=== PATIENT | male | born 1960 ===

== ENCOUNTER 2017-12-09 00:18 | Day surgery (SDC) | payer OTHER ==
[2017-12-09] VITALS (11 sets, daily range): BP systolic 107–144; BP diastolic 52–106
[~2017-12-09] VITALS: Ht 188 cm; Wt 91.2 kg
[~2017-12-09 00:18] MED LIST: ASPI-1471 PO; FAMOTIDINE 20 MG TAB PO ONE; LIDOCAINE/SOD BICARB 8.4% SYR ID ONE; LISI5TAB25 PO; LORA-629 PO; MIDAZOLAM 2 MG/2 ML VIAL IVP PRN; NORMOSOL R SOLN(*) 1000 ML BAG 1,000 ML IV PRN; PANT40TA65 PO; ceFAZolin(*) 1 GM VIAL 1 GM in NS(*) 0.9% 100 ML ADDVANT BAG 100 ML IVPB ONE
[2017-12-09] MEDS ORDERED: FAMOTIDINE 20 MG TAB PO ONE ×2 (06:20→07:30)
[2017-12-09] MEDS ORDERED: NORMOSOL R SOLN(*) 1000 ML BAG 1,000 ML IV PRN (06:20)
[2017-12-09] MEDS ORDERED: LIDOCAINE/SOD BICARB 8.4% SYR ID ONE ×2 (06:20→07:30)
[2017-12-09] MEDS ORDERED: ceFAZolin(*) 2GM/D5W 50ML 50 ML IVPB ONE ×2 (06:20→08:35)
[2017-12-09] MEDS ORDERED: MIDAZOLAM 2 MG/2 ML VIAL IVP PRN ×2 (06:20→07:30)
[2017-12-09] MEDS ORDERED: ROPIVACAINE 0.5% 20 ML VIAL ONE (07:26)
[2017-12-09 07:55] LABS: PLATELET COUNT, AUTOMATED 288 K/uL (150-450)
--- NOTE | 2017-12-09 08:08 | EKG ---
FACILITY: [facility] - [place] PATIENT NAME: MANOLO HUDDLESTON : [id number] MR: [id number] V: [id number] EXAM DATE: ORDERING PHYSICIAN: MANOLO BONNER TECHNOLOGIST: SUJATA Hwang Reason : PRE-OP Blood Pressure : / mmHG Vent. Rate : 085 BPM Atrial Rate : 085 BPM P-R Int : 184 ms QRS Dur : 098 ms QT Int : 366 ms P-R-T Axes : 050 005 052 degrees QTc Int : 435 ms Sinus rhythm No acute appearing findings No previous ECGs available Confirmed by KING PAINTING ([id number]) on 12/09/2017 10:37:56 AM Referred By: HA Confirmed By:KING PAINTING
[2017-12-09] MEDS ORDERED: MIDAZOLAM 2 MG/2 ML VIAL ONE (08:26)
[2017-12-09] MEDS ORDERED: fentaNYL CITR 100 MCG/2 ML AMP ONE ×2 (08:26→10:28)
[2017-12-09] MEDS ORDERED: DEXAMETHASONE SOD PHOS 10MG/ML ONE (08:27)
[2017-12-09] MEDS ORDERED: LIDOCAINE MPF 1% 5 ML VIAL ONE (08:27)
[2017-12-09] MEDS ORDERED: ONDANSETRON 4 MG/2 ML VIAL ONE (08:27)
[2017-12-09] MEDS ORDERED: PROPOFOL EMUL(*) 10MG/ML 20 ML 20 ML ONE (08:27)
[2017-12-09] MEDS ORDERED: ROCURONIUM BROM 10 MG/ML 10 ML ONE (08:27)
[2017-12-09] MEDS ORDERED: PHENYLEPHRINE/NS/PF 0.4MG/10ML ONE (08:56)
[2017-12-09] MEDS ORDERED: SUGAMMADEX SOD 500 MG/5 ML SDV ONE (09:55)
[2017-12-09] MEDS ORDERED: ACETAMINOPHEN(*)1000 MG/100 ML 100 ML IVPB ONE (10:21)
[2017-12-09] MEDS ORDERED: OXYC-854 PO (10:29)
[2017-12-09] MEDS ORDERED: DOCU-416 PO (10:29)
--- NOTE | 2017-12-09 10:32 | Short(Outpt) Discharge Summary ---
Discharge Summary Reason for Hosp/Final Diag: (1) Right inguinal hernia Status: Chronic Hospital Course & Plan: Robotic RIH repair completed without problems. Departure Discharge to: Home, Self Care Discharge Instructions Home Meds Active Scripts Docusate Sodium (COLACE) 100 Mg Capsule, 1 CAP PO BID, #30 CAP 0 Refills TAKE WITH A FULL GLASS OF WATER Prov:MANOLO BONNER MD 12/09/17 Oxycodone Hcl/Acet 5/325 Mg (ENDOCET 5-325 TABLET) 1 Each Tablet, 1-2 TAB PO Q4H Y for PAIN, #30 TAB 0 Refills Prov:MANOLO BONNER MD 12/09/17 Reported Medications Aspirin (ASPIR 81) 81 Mg Tablet., 81 MG PO QDAY, TAB 11/17/17 Loratadine (LORATADINE) 10 Mg Tablet, 10 MG PO QDAY 11/15/17 Lisinopril (LISINOPRIL) 5 Mg Tablet, 1 TAB PO QDAY, TAB 11/15/17 Follow up Referrals: General Surgery - 12/27/17 @ Surgery, General with Manolo Bonner Md You have a follow up appointment scheduled with Dr. Bonner on 12/27/17, at 11:30am. Diet: Regular Activity: No Heavy Lifting Special Instructions: You may remove the white surgical dressings on 12/11/17, then you can shower. After showering, leave the incisions open to air but leave the steristrips in place until they fall off on their own. Do not immerse the incisions for 2 weeks. Avoid any activity that involves straining or lifting more than 10 pounds for 2 weeks. MANOLO BONNER MD Dec 09, 2017 10:32
--- NOTE | 2017-12-09 10:38 | Post Operative Progress Note ---
Post Operative Progress Note Date: Dec 09, 2017 Time: 10:32 Surgeon: Mi Dictation number: [id number] Anesthesia: GETA by Dr. Hernandez Pre-Op Diagnosis: RIH Post-Op Diagnosis: COLLINS, indirect Findings: Right indirect inguinal hernia Procedure(s): Robotic RIH repair Specimen Removed:(May be N/A): None Complications: None Fluids: See anesthesia record Estimated Blood Loss: Minimal Date OP Note Dictated: Dec 09, 2017 Time OP Note Dictated: 10:34 MANOLO BONNER MD Dec 09, 2017 10:38
[2017-12-09] MEDS ORDERED: oxyCODONE/ACETAMIN 5/325MG TH 2 TAB/BOTTLE ONE (11:05)
[2017-12-09] MEDS ORDERED: NORMOSOL R SOLN(*) 1000 ML BAG 1,000 ML IV ONE (11:44)
[2017-12-09] MEDS ORDERED: METOCLOPRAMIDE 10 MG/2 ML SDV ONE (12:18)
--- NOTE | 2017-12-09 15:40 | OPERATIVE REPORT 1 ---
EVENT DATE: December 09, 2017 SURGEON: Shekhar Stark MD ANESTHESIOLOGIST: Yohan Hernandez MD ANESTHESIA: General endotracheal anesthesia. PREOPERATIVE DIAGNOSIS Right inguinal hernia. POSTOPERATIVE DIAGNOSIS Right indirect inguinal hernia. PROCEDURE PERFORMED Robotic right inguinal hernia repair. COMPLICATIONS None. CONDITION Stable. BLOOD LOSS Minimal. INDICATIONS This is a 57-year-old gentleman who presented to my office with a bulge in his right groin. It was slowly getting larger and causing him some discomfort, and he was requesting to have it repaired. DESCRIPTION OF PROCEDURE The patient was brought to the operating room and placed supine on the operating table. General endotracheal anesthesia was administered, and his abdomen was prepped and draped in a sterile fashion. A timeout was completed. I injected the supraumbilical skin with 0.5% ropivacaine plain and made a curvilinear frowning face type incision in the superior umbilical rim. I dissected down through the dermis and subcutaneous fat. I identified the midline fascia and made a vertical incision in the midline fascia. I grasped the fascial edges with Nuha clamps and then bluntly entered the peritoneal cavity with my finger. I placed two interrupted 0 Vicryl sutures transversely through the vertical fascial defect and inserted a 12 mm Collin robotic port through this wound and secured it in place with sutures. I insufflated the abdomen to a pressure of 15 mmHg. I then inserted the camera through this port , and under direct visualization, I placed an 8 mm robotic port in the right mid abdomen and an 8 mm robotic port in the left mid abdomen. With the patient in Trendelenburg, the robot was docked and targeted. The instruments were inserted, and then I inspected the abdominal cavity. I did not see a hernia on the left side. Interestingly, the peritoneum did not go into the inguinal canal in the right groin either. I divided the peritoneum, palpated around the anterior superior iliac spine running medially, and then the peritoneum down creating the preperitoneal pocket. I cleaned off the pubic tubercle and Tico ligament and identified the bladder which was uninjured. I then moved laterally and cleaned off the iliopubic tract all the way to the anterior superior iliac spine. I identified a large cord lipoma, which I was easily able to reduce the entire thing. I identified the cord structures including the vas and gonadal vessels, and these were all preserved. Once the cord lipoma was reduced, I placed a large right-sided ProGrip mesh into the preperitoneal space and unfurled it so it covered the entire myopectineal orifice with a several centimeter overlap on all sides. It laid nice and flat, and then I placed the fat that consisted the cord lipoma on top of the mesh, and then I closed the peritoneal defect with a running V-Loc absorbable suture. I then removed the instruments, desufflated the abdomen, removed the ports, and then closed the umbilical fascial defect with another [id number] 0 Vicryl suture and tied all three of these down with good reapproximation of the fascial edges. The skin at each port site was closed with 4-0 Monocryl running subcuticular suture. The skin was cleaned and dried, and Steri-Strips were applied, followed by sterile surgical dressings. The patient was awakened and extubated in the operating room and transported to the recovery room in stable condition having tolerated the procedure without any apparent problems. TESSA
== END 2017-12-09 11:29 | disposition home or self-care (01) ==
LOC: OR 00:18
PROVIDERS: ATTEND Surgery
DX: K40.90 Unilateral inguinal hernia, without obstruction or gangrene, not specified as recurrent (principal); I10 Essential (primary) hypertension
CPT/HCPCS: 36415; 49650; 85025; 93005; J0131; J1100; J2001; J2250; J2370; J2405; J2704; J2765; J2795; J3010; S2900; C1781; J0690

== ENCOUNTER → 2017-12-13 | Outpatient (CLI) | payer OTHER ==
[~2017-12-13] MED LIST changes: +BARIUM SULFATE 176 GM BTL PO ONE; +BARIUM SULFATE 340 GM POWD ONE; +DOCU-416 PO; -FAMOTIDINE 20 MG TAB PO ONE; -LIDOCAINE/SOD BICARB 8.4% SYR ID ONE; -MIDAZOLAM 2 MG/2 ML VIAL IVP PRN; -NORMOSOL R SOLN(*) 1000 ML BAG 1,000 ML IV PRN; +OXYC-854 PO; -ceFAZolin(*) 1 GM VIAL 1 GM in NS(*) 0.9% 100 ML ADDVANT BAG 100 ML IVPB ONE
--- NOTE | 2017-12-13 10:28 | RADIOLOGY IMAGING REPORT ---
FACILITY: [facility] PATIENT NAME: Manolo Dockery : 1960 MR: [id number] V: [id number] EXAM DATE: ORDERING PHYSICIAN: MANOLO BONNER TECHNOLOGIST: Location: [facility] [place] Patient: Manolo Dockery : 1960 Visit/Account:[id number] Date of Sevice: 12/13/2017 ESOPHAGRAM HISTORY: Dysphagia COMPARISON: None TECHNIQUE: Fizzies followed by multiple consistencies of barium were administered orally with multipl e spot films obtained. A 13 mm barium tablet also administered. FINDINGS: Esophagus: The esophagus is normal in caliber and contour with no persistent intrinsic or extrinsic f illing defects. There are no persistent areas of narrowing. Hiatal hernia: There is no significant hiatal hernia. Reflux: There are no significant episodes of gastroesophageal reflux. Other findings: A barium tablet passed easily without holdup. Dose area product of 600 uGym2 IMPRESSION: 1. Normal esophagram. Report Dictated By: Anoop Campo MD at 12/13/2017 10:20 AM Report E-Signed By: Anoop Campo MD at 12/13/2017 10:22 AM WSN:[email or web address]
== END ==
LOC: RAD 11-29 01:54
PROVIDERS: ATTEND Surgery
DX: R13.10 Dysphagia, unspecified (principal)
CPT/HCPCS: 74220

== ENCOUNTER 2018-01-22 22:06 | Emergency (ER) | payer OTHER ==
[~2018-01-22 22:06] MED LIST changes: -BARIUM SULFATE 176 GM BTL PO ONE; -BARIUM SULFATE 340 GM POWD ONE
--- NOTE | 2018-01-22 22:21 | ER Report ---
History and Physical Time Seen By MD: 22:20 Hx. of Stated Complaint: PT REPORTS DIZZINESS OFF AND ON WEEKLY FOR THE PAST THREE OR FOUR WEEKS. HAS SOME ANXIETY. HAS SOME PAIN IN JAW. HPI/ROS CHIEF COMPLAINT: dizziness, anxiety, jaw discomfort HISTORY OF PRESENT ILLNESS: This is a 57 year old male. he has been having some dizziness off and on, about three times this week, prior to this about once a week. Will come on suddenly, often does note matter what he is doing. Lasted longer than usual tonight and was accompanied by some indigestion and funny feeling of discomfort in jaw. No shortness of breath with this. No acid reflux. Has had an esophagram recently which was normal. No history of heart problems. No cough, fevers or chills. No recent illness. He has had normal oral intake recently, no trouble swallowing. No nausea or vomiting. Normal bowel and bladder function. Allergies: Coded Allergies: No Known Drug Allergies (Unverified , 01/22/18) Home Meds Reported Medications Aspirin (ASPIR 81) 81 Mg Tablet.dr, 81 MG PO QDAY, TAB 11/17/17 Lisinopril (LISINOPRIL) 5 Mg Tablet, 1 TAB PO QDAY, TAB 11/15/17 Discontinued Reported Medications Loratadine (LORATADINE) 10 Mg Tablet, 10 MG PO QDAY 11/15/17 Reviewed Nurses Notes: Yes Hx Smoking: No Smoking Status: Former Smoker Hx Substance Use Disorder: No Constitutional Vital Sign - Last 24 Hours 01/22/18 01/22/18 01/22/18 01/22/18 22:12 22:35 22:45 23:00 Temp 98.0 Pulse 94 95 85 Resp 19 16 17 B/P (MAP) 133/110 125/90 (102) 127/95 (106) 129/94 (106) 127/100 (109) Pulse Ox 93 92 94 91 O2 Delivery Room Air Room Air 01/22/18 01/22/18 01/22/18 01/23/18 23:15 23:30 23:45 00:03 Pulse 87 86 90 85 Resp 14 17 13 16 B/P (MAP) 121/90 (100) 132/82 (99) Pulse Ox 95 92 93 92 O2 Delivery Room Air Physical Exam General Appearance: The patient is alert. No acute distress. Non-toxic in appearance. Eyes: Pupils are equal, round. Reactive to light. No pallor, injection or icterus. Extraocular movements are intact. ENT: Mucous membranes are moist. Normal oral mucosa. Posterior oropharynx is normal. Normal tympanic membranes and canals. Neck: Supple and non tender. No lymphadenopathy. Respiratory: Lungs are clear to auscultation. Cardiovascular: Regular rate and rhythm. No murmurs, gallops or rubs. Normal capillary refill. No edema. Gastrointestinal: Abdomen is soft and non tender. Nondistended. Normal active bowel sounds. Neurological: Alert and oriented x3. Cranial nerves II through XII show no acute deficits on my exam. No focal neurologic deficits in the extremities. Skin: Warm and dry. No rashes. Musculoskeletal: Extremities are nontender. Full range of motion. DIFFERENTIAL DIAGNOSIS: After history and physical exam, differential diagnosis was considered for dizziness including but not limited to peripheral and central causes of vertigo, cardiovascular causes such as arrythmia, orthostatic causes including dehydration, and blood loss. Medical Decision Making Data Points Result Diagram: 01/22/18 2211 01/22/18 2211 Laboratory Hematology Test 01/22/18 22:11 Red Blood Count 5.13 M/uL (4.00-5.60) Mean Corpuscular Volume 90.3 fL (80.0-96.0) Mean Corpuscular Hemoglobin 30.9 pg (26.0-33.0) Mean Corpuscular Hemoglobin Concent 34.2 g/dL (32.0-36.0) Red Cell Distribution Width 13.4 % (11.5-14.5) Mean Platelet Volume 8.0 fL (7.2-11.1) Neutrophils (%) (Auto) 67.0 % (39.4-72.5) Lymphocytes (%) (Auto) 20.2 % (17.6-49.6) Monocytes (%) (Auto) 7.9 % (4.1-12.4) Eosinophils (%) (Auto) 4.2 % (0.4-6.7) Basophils (%) (Auto) 0.7 % (0.3-1.4) Nucleated RBC Relative Count (auto) 0.0 /100WBC Neutrophils # (Auto) 8.2 K/uL (2.0-7.4) Lymphocytes # (Auto) 2.5 K/uL (1.3-3.6) Monocytes # (Auto) 1.0 K/uL (0.3-1.0) Eosinophils # (Auto) 0.5 K/uL (0.0-0.5) Basophils # (Auto) 0.1 K/uL (0.0-0.1) Nucleated RBC Absolute Count (auto) 0.00 K/uL Sodium Level 138 mmol/L (137-145) Potassium Level 3.4 mmol/L (3.5-5.0) Chloride Level 101 mmol/L (98-107) Carbon Dioxide Level 26 mmol/L (22-30) Blood Urea Nitrogen 30 mg/dl (9-21) Creatinine 1.40 mg/dl (0.66-1.25) Glomerular Filtration Rate Calc 52.4 Random Glucose 118 mg/dl (75-110) Calcium Level 9.4 mg/dl (8.4-10.2) Total Bilirubin 0.4 mg/dl (0.2-1.3) Aspartate Amino Transf (AST/SGOT) 32 U/L (0-35) Alanine Aminotransferase (ALT/SGPT) 48 U/L (0-56) Alkaline Phosphatase 68 U/L (0-126) Troponin I < 0.012 ng/ml Total Protein 7.3 gm/dl (6.3-8.2) Albumin 3.9 g/dl (3.5-5.0) Chemistry Test 01/22/18 22:11 White Blood Count 12.3 k/uL (4.5-11.0) Red Blood Count 5.13 M/uL (4.00-5.60) Hemoglobin 15.9 g/dL (14.0-18.0) Hematocrit 46.3 % (42.0-52.0) Mean Corpuscular Volume 90.3 fL (80.0-96.0) Mean Corpuscular Hemoglobin 30.9 pg (26.0-33.0) Mean Corpuscular Hemoglobin Concent 34.2 g/dL (32.0-36.0) Red Cell Distribution Width 13.4 % (11.5-14.5) Platelet Count 247 K/uL (150-450) Mean Platelet Volume 8.0 fL (7.2-11.1) Neutrophils (%) (Auto) 67.0 % (39.4-72.5) Lymphocytes (%) (Auto) 20.2 % (17.6-49.6) Monocytes (%) (Auto) 7.9 % (4.1-12.4) Eosinophils (%) (Auto) 4.2 % (0.4-6.7) Basophils (%) (Auto) 0.7 % (0.3-1.4) Nucleated RBC Relative Count (auto) 0.0 /100WBC Neutrophils # (Auto) 8.2 K/uL (2.0-7.4) Lymphocytes # (Auto) 2.5 K/uL (1.3-3.6) Monocytes # (Auto) 1.0 K/uL (0.3-1.0) Eosinophils # (Auto) 0.5 K/uL (0.0-0.5) Basophils # (Auto) 0.1 K/uL (0.0-0.1) Nucleated RBC Absolute Count (auto) 0.00 K/uL Glomerular Filtration Rate Calc 52.4 Calcium Level 9.4 mg/dl (8.4-10.2) Total Bilirubin 0.4 mg/dl (0.2-1.3) Aspartate Amino Transf (AST/SGOT) 32 U/L (0-35) Alanine Aminotransferase (ALT/SGPT) 48 U/L (0-56) Alkaline Phosphatase 68 U/L (0-126) Troponin I < 0.012 ng/ml Total Protein 7.3 gm/dl (6.3-8.2) Albumin 3.9 g/dl (3.5-5.0) EKG/Imaging EKG Interpretation 12 lead EKG: Rhythm: normal sinus rhythm, rate 88 Sebastian: normal QRS: normal ST segments: normal Imaging CHEST PA AND LAT HISTORY: Dizziness. COMPARISON: None. TECHNIQUE: PA and lateral views of the chest. FINDINGS: Pulmonary: There is a 5 x 2 mm pulmonary nodule versus vessel on end in the right lung projecting between the seventh and eighth posterior right ribs. There is linear subsegmental atelectasis or scarring at the left base. There is no pneumothorax or pleural effusion. Cardiomediastinal: Cardiac and mediastinal silhouettes are within normal limits. Bones/soft tissues: No acute osseous abnormality. There is mild degenerative change of the spine. The visible abdomen is normal. IMPRESSION: 1. Questionable pulmonary nodule versus vessel on end in the right mid lung, visible only on the frontal view. If patient is at high risk for malignancy, and if there are no prior studies available for comparison, nonemergent chest CT versus short-term follow-up chest x-ray could be obtained. If patient is at low risk of malignancy, follow-up chest x-ray in 6 months to one year can be obtained to assess for stability. Report Dictated By: Rafaela Funez at 01/22/2018 11:11 PM HEAD W/O CONTRAST HISTORY: Dizziness. COMPARISON: None. TECHNIQUE: Axial images were obtained from the skull base to the vertex without contrast. Sagittal and coronal reformats were performed. One of the following dose optimization techniques was utilized in the performance of this exam: Automated exposure control; adjustment of the mA and/ or kV according to the patient's size; or use of an iterative reconstruction technique. Specific details can be referenced in the facility's radiology CT exam operational policy. CONTRAST: None. FINDINGS: Brain: No intracranial hemorrhage, mass or edema. Ventricles and sulci: Sulci are normal. Ventricular size and configuration is normal. Osseous structures: Intact. Sinuses and mastoids: Normal. Orbits and soft tissues: Normal. IMPRESSION: 1. No acute intracranial abnormality. Report Dictated By: Rafaela Funez at 01/22/2018 11:17 PM ED Course/Re-evaluation Clinical Indication for ER IV: IV Access ED Course Orthostatic vital signs negative. Labs and imaging unremarkable. EKG also unremarkable. Discussed these with the patient and answered questions. Recommended Holter monitor and follow-up with primary care for re-evaluation and stress testing. Patient will follow-up with Dr. Gutierrez and will hold on Holter for now until he sees her. Decision to Disposition Date: Jan 22, 2018 Decision to Disposition Time: 23:56 Depart Departure Latest Vital Signs Vital Signs Date Time Temp Pulse Resp B/P (MAP) Pulse Ox O2 Delivery O2 Flow Rate FiO2 01/23/18 00:03 85 16 132/82 (99) 92 Room Air 01/22/18 22:12 98.0 Impression: Primary Impression: Dizziness Condition: Improved Disposition: HOME OR SELF-CARE Referrals: LUZ GUTIERREZ DO (PCP) Patient Instructions: Dizziness (ED) Additional Instructions: Talk to Dr. Gutierrez about getting set up for a heart monitor and also to talk about further testing such as a stress test. ALCON MONREAL MD Jan 22, 2018 22:21
--- NOTE | 2018-01-22 22:43 | EKG ---
FACILITY: [facility] PATIENT NAME: MANOLO HUDDLESTON : [id number] MR: [id number] V: [id number] EXAM DATE: ORDERING PHYSICIAN: ALCON MONREAL TECHNOLOGIST: ELOISA Test Reason : JAW PAIN Blood Pressure : / mmHG Vent. Rate : 088 BPM Atrial Rate : 088 BPM P-R Int : 194 ms QRS Dur : 100 ms QT Int : 366 ms P-R-T Axes : 057 013 052 degrees QTc Int : 442 ms Sinus rhythm Borderline left axis Nonspecific ST findings inferolateral leads Confirmed by KING PAINTING ([id number]) on 01/23/2018 4:09:02 PM Referred By: Confirmed By:KING PAINTING
[2018-01-22 22:44] LABS: PLATELET COUNT, AUTOMATED 247 K/uL (150-450)
--- NOTE | 2018-01-22 23:18 | RADIOLOGY IMAGING REPORT ---
FACILITY: [facility] - [place] PATIENT NAME: Shekhar Dockery : 1960 MR: [id number] V: [id number] EXAM DATE: ORDERING PHYSICIAN: ALCON MONREAL TECHNOLOGIST: Location: [facility] - [place] Patient: Shekhar Dockery : 1960 Visit/Account:[id number] Date of Sevice: 01/22/2018 CHEST PA AND LAT HISTORY: Dizziness. COMPARISON: None. TECHNIQUE: PA and lateral views of the chest. FINDINGS: Pulmonary: There is a 5 x 2 mm pulmonary nodule versus vessel on end in the right lung projecting bet ween the seventh and eighth posterior right ribs. There is linear subsegmental atelectasis or scarrin g at the left base. There is no pneumothorax or pleural effusion. Cardiomediastinal: Cardiac and mediastinal silhouettes are within normal limits. Bones/soft tissues: No acute osseous abnormality. There is mild degenerative change of the spine. The visible abdomen is normal. IMPRESSION: 1. Questionable pulmonary nodule versus vessel on end in the right mid lung, visible only on the fron vicente view. If patient is at high risk for malignancy, and if there are no prior studies available for comparison, nonemergent chest CT versus short-term follow-up chest x-ray could be obtained. If patien t is at low risk of malignancy, follow-up chest x-ray in 6 months to one year can be obtained to asse ss for stability. Report Dictated By: Rafaela Funez at 01/22/2018 11:11 PM Report E-Signed By: Rafaela Funez at 01/22/2018 11:15 PM WSN:[id number]
--- NOTE | 2018-01-22 23:24 | RADIOLOGY IMAGING REPORT ---
FACILITY: [facility] - [place] PATIENT NAME: Shekhar Dockery : 1960 MR: [id number] V: [id number] EXAM DATE: ORDERING PHYSICIAN: ALCON MONREAL TECHNOLOGIST: Location: [facility] [place] Patient: Shekhar Dockery : 1960 Visit/Account:[id number] Date of Sevice: 01/22/2018 HEAD W/O CONTRAST HISTORY: Dizziness. COMPARISON: None. TECHNIQUE: Axial images were obtained from the skull base to the vertex without contrast. Sagittal an d coronal reformats were performed. One of the following dose optimization techniques was utilized in the performance of this exam: Autom ated exposure control; adjustment of the mA and/or kV according to the patient's size; or use of an i terative reconstruction technique. Specific details can be referenced in the facility's radiology CT exam operational policy. CONTRAST: None. FINDINGS: Brain: No intracranial hemorrhage, mass or edema. Ventricles and sulci: Sulci are normal. Ventricular size and configuration is normal. Osseous structures: Intact. Sinuses and mastoids: Normal. Orbits and soft tissues: Normal. IMPRESSION: 1. No acute intracranial abnormality. Report Dictated By: Rafaela Funez at 01/22/2018 11:17 PM Report E-Signed By: Rafaela Funez at 01/22/2018 11:20 PM WSN:[id number]
[2018-01-23 00:03] VITALS: BP 132/82
== END 2018-01-23 00:02 | disposition home or self-care (01) ==
LOC: ER 22:15
DX: R42 Dizziness and giddiness (principal); R68.84 Jaw pain; F41.9 Anxiety disorder, unspecified
CPT/HCPCS: 70450; 71046; 82040; 82247; 82310; 82374; 82435; 82565; 82947; 84075; 84132; 84155; 84295; 84450; 84460; 84484; 84520; 85025; 93005; 99284

== ENCOUNTER → 2018-06-23 | Outpatient (CLI) | payer OTHER | LOC: LAB 07:37 | PROVIDERS: ATTEND Family Medicine | DX: E78.5 Hyperlipidemia, unspecified (principal); R73.01 Impaired fasting glucose | CPT/HCPCS: 36415; 82040; 82247; 82310; 82374; 82435; 82465; 82565; 82947; 83036; 83718; 84075; 84132; 84155; 84295; 84450; 84460; 84478; 84520 ==

== ENCOUNTER → 2018-07-06 | Outpatient (CLI) | payer OTHER ==
--- NOTE | 2018-07-06 16:43 | RADIOLOGY IMAGING REPORT ---
FACILITY: [facility] - [place], [place] PATIENT NAME: Shekhar Dockery : 1960 MR: [id number] V: [id number] EXAM DATE: ORDERING PHYSICIAN: LUZ PHIPPS TECHNOLOGIST: Location: [facility] Patient: Shekhar Dockery : 1960 Visit/Account:[id number] Date of Sevice: 07/06/2018 KIDNEYS EXAMINATION: Renal ultrasound. History: Renal insufficiency, elevated BUN/creatinine COMPARISON STUDIES: FINDINGS: Kidneys: Right kidney- 11.4 x 6.4 x 6.2 cm cm Left kidney- 13.5 x 6.5 x 5.4 cm cm Uniform and symmetric blood flow in each kidney by Doppler ultrasound. Hydronephrosis: none The renal parenchyma appears echogenic bilaterally. There is a 1.5 cm cyst upper pole of the left ki dney is very mild left renal pyelocaliectasis. The resistive index on the right 0.58 on the left 0.4 2. There is a lobular contour to both kidneys Bladder: Prevoid volume 820 mL.. Post void bladder residual 292 mL. Bilateral ureteral jets are pre sent Abdominal aorta and IVC: Aorta and IVC are patent by Doppler ultrasound. IMPRESSION: Lobular contour to both kidneys with echogenic renal parenchyma which can be seen with medical renal disease Very mild pyelocaliectasis the left kidney Post void bladder residual 292 mL Report Dictated By: Alfreda Caceres MD at 07/06/2018 4:36 PM Report E-Signed By: Alfreda Caceres MD at 07/06/2018 4:39 PM WSN:[email or web address]
== END ==
LOC: US 01:41
PROVIDERS: ATTEND Family Medicine
DX: Q63.2 Ectopic kidney (principal); R33.9 Retention of urine, unspecified; N18.9 Chronic kidney disease, unspecified
CPT/HCPCS: 76705

== ENCOUNTER → 2018-09-09 | Outpatient (CLI) | payer OTHER ==
[~2018-09-09] MED LIST changes: +FLU60SYR36 IM
--- NOTE | 2018-09-13 07:46 | RT STRESS TEST REPORT ---
FACILITY: [facility] - [place] PATIENT NAME: MANOLO HUDDLESTON : [id number] MR: [id number] V: [id number] EXAM DATE: ORDERING PHYSICIAN: NAYELI GUTIERREZ TECHNOLOGIST: Waqas Acquisition Time: 2018-09-09 10:24:33 Total Exercise Time: 00:06:57 Test Indications: Chest Discomfort Medications: BABY ASA CLARITAN LISINOPRIL Protocol: ABDOUL 2 Max HR: 166 BPM 101% of Pred: 163 BPM Max BP: 162/082 mmHG Max Work Load: 8.3 METS see echo report. Confirmed by ALCON LAURA ([id number]), makeup editor ЕЛЕНА ERNST (2) on 09/13/2018 7:45:33 AM Referred By: Nayeli Gutierrez Overread By: ALCON LAURA
== END ==
LOC: RESP 00:47
PROVIDERS: ATTEND Family Medicine
DX: R07.9 Chest pain, unspecified (principal)
CPT/HCPCS: 93017; 93350

== ENCOUNTER → 2018-11-21 | Outpatient (CLI) | payer OTHER | LOC: LAB 07:59 | PROVIDERS: ATTEND Family Medicine | DX: Z00.00 Encounter for general adult medical examination without abnormal findings (principal); Z12.5 Encounter for screening for malignant neoplasm of prostate; Z13.29 Encounter for screening for other suspected endocrine disorder; Z13.1 Encounter for screening for diabetes mellitus | CPT/HCPCS: 36415; 82040; 82247; 82310; 82374; 82435; 82465; 82565; 82947; 83036; 83718; 84075; 84132; 84153; 84155; 84295; 84443; 84450; 84460; 84478; 84520; 85027 ==

== ENCOUNTER → 2018-12-20 | Outpatient (CLI) | payer OTHER | LOC: LAB 13:47 | PROVIDERS: ATTEND Family Medicine | DX: E05.90 Thyrotoxicosis, unspecified without thyrotoxic crisis or storm (principal) | CPT/HCPCS: 36415; 84443 ==

== ENCOUNTER → 2018-12-23 | Outpatient (CLI) | payer OTHER ==
--- NOTE | 2018-12-23 15:35 | RADIOLOGY IMAGING REPORT ---
FACILITY: [facility] PATIENT NAME: Shekhar Dockery : 1960 MR: [id number] V: [id number] EXAM DATE: ORDERING PHYSICIAN: LUZ PHIPPS TECHNOLOGIST: [facility] Patient: Shekhar Dockery : 1960 Visit/Account:[id number] Date of Sevice: 12/23/2018 THYROID HISTORY: Hyperthyroidism COMPARISON: None. FINDINGS: SIZE: Right lobe: 5.1 x 2.1 x 2 cm Left lobe: 4.7 x 1.6 x 1.4 cm Isthmus: 2.5 mm PARENCHYMA: Homogeneous. NODULES: Right lobe: * There is a 1.3 cm solid hypoechoic slightly hypervascular nodule in the superior pole the right lo be. Left lobe: * There is a well-circumscribed isoechoic nodule in the mid left lobe measuring 6 mm in diameter and additional S code nodule in the mid left lobe measuring 3 mm in diameter Isthmus: * None discrete. VASCULARITY: Within normal limits. ADDITIONAL FINDINGS: None. IMPRESSION: There is a 1.3 cm solid hypoechoic hypervascular nodule in the superior pole of the right lobe for wh ich ultrasound-guided fine-needle aspiration is recommended REFERENCE: 2015 [employer] Management Guidelines for Adult Patients with Thyroid Nodules and D ifferentiated Thyroid Cancer: The [employer] Guidelines Task Force on Thyroid Nodul es and Differentiated Thyroid Cancer. SONOGRAPHIC PATTERNS: * Benign: Purely cystic nodules (no solid component); estimated risk of malignancy <1 percent; no bi opsy recommended. * Very Low Suspicion: Spongiform or partially cystic nodules without any of the sonographic features described in low, intermediate, or high suspicion patterns; estimated risk of malignancy <3 percent; consider FNA at > 2 cm (Observation without FNA is also a reasonable option). * Low Suspicion: Isoechoic or hyperechoic solid nodule, or partially cystic nodule with eccentric so lid areas, without microcalcification, irregular margin or ETE (extra-thyroidal extension), or taller than wide shape; estimated risk of malignancy 5-10 percent; recommend FNA at >1.5 cm. * Intermediate Suspicion: Hypoechoic solid nodule with smooth margins without microcalcifications, E TE (extra-thyroidal extension), or taller than wide shape; estimated risk of malignancy 10-20 percent ; recommend FNA at > 1 cm. * High Suspicion: Solid hypoechoic nodule or solid hypoechoic component of a partially cystic nodule with one or more of the following features: irregular margins (infiltrative, microlobulated), microc alcifications, taller than wide shape, rim calcifications with small extrusive soft tissue component, evidence of ETE (extra-thyroidal extension); estimated risk of malignancy >70-90 percent; recommend FNA at > 1 cm. NOTES: * Although a sonographically suspicious subcentimeter thyroid nodule without evidence of extrathyroi elgin extension or sonographically suspicious lymph nodes may be observed with close sonographic follow -up rather than pursuing immediate FNA, patient age and preference may modify decision-making. A > 50% interval increase in nodule volume and/or development of new suspicious sonographic features are felt to be a valid reasons for potential re-aspiration of a nodule previously shown to have benig n FNA cytology. Report Dictated By: Alfreda Caceres MD at 12/23/2018 3:26 PM Report E-Signed By: Alfreda Caceres MD at 12/23/2018 3:30 PM WSN:[email or web address]
== END ==
LOC: US 02:34
PROVIDERS: ATTEND Family Medicine
DX: E04.1 Nontoxic single thyroid nodule (principal)
CPT/HCPCS: 76536

== ENCOUNTER → 2018-12-28 | Outpatient (CLI) | payer OTHER ==
[~2018-12-28] MED LIST changes: +METH5TAB87 PO
== END ==
LOC: LAB 09:14
PROVIDERS: ATTEND Otolaryngology
DX: E05.90 Thyrotoxicosis, unspecified without thyrotoxic crisis or storm (principal); E04.2 Nontoxic multinodular goiter
CPT/HCPCS: 36415; 84445; 86376; 86800

== ENCOUNTER → 2019-01-03 | Outpatient (CLI) | payer OTHER ==
[~2019-01-03] MED LIST changes: +ATEN-1 PO
== END ==
LOC: NUC 01:44
PROVIDERS: ATTEND Otolaryngology
DX: Z02.9 Encounter for administrative examinations, unspecified (principal)

== ENCOUNTER 2019-01-24 00:30 | Outpatient (RCR) | payer OTHER ==
--- NOTE | 2019-01-25 09:55 | RADIOLOGY IMAGING REPORT ---
FACILITY: [facility] [place] PATIENT NAME: Shekhar Dockery : 1960 MR: [id number] V: [id number] EXAM DATE: ORDERING PHYSICIAN: MARINE AKBAR TECHNOLOGIST: Location: [facility] [place] Patient: Shekhar Dockery : 1960 Visit/Account:[id number] Date of Sevice: 01/24/2019 NM THYROID UPTAKE - MULT. DE HISTORY: hyperthyroid TECHNIQUE: Patient administered patient administered 379 uCi of I-123 FINDINGS: Anterior, ALC[place]ARA and PASHTO views of the thyroid were obtained. The study demonstrated homogenous left gla nd. There is a slight increased focal roundish uptake in the upper aspect of the right gland consist ent the nodule seen on the ultrasound from 12/23/2018. Six hour uptake was 12.4%. 24-hour uptake was 25.3%. IMPRESSION: 1. Focal warm nodule in the upper pole of the right thyroid gland. This corresponds to the nodule s een on the previous thyroid ultrasound. 2. Six-hour uptake of 12.3% (Normal 5-15%) 24 hour uptake of 25.3%. (Normal 15-40%) Report Dictated By: Peter Mojica MD at 01/25/2019 8:48 AM Report E-Signed By: Peter Mojica MD at 01/25/2019 9:52 AM WSN:[email or web address]
== END 2019-01-24 18:00 | disposition home or self-care (01) ==
LOC: NUC 00:30 → EDSTATUS 13:49 → NUC 18:00
PROVIDERS: ATTEND Otolaryngology
DX: E05.90 Thyrotoxicosis, unspecified without thyrotoxic crisis or storm (principal)
CPT/HCPCS: 78014; A9516

== ENCOUNTER 2019-02-06 02:31 | Observation (INO) | payer OTHER ==
[~2019-02-06] VITALS: Ht 188 cm; Wt 94.8 kg
[2019-02-06] VITALS (10 sets, daily range): BP systolic 14–141; BP diastolic 85–100
[2019-02-06] MEDS ORDERED: fentaNYL CITR 100 MCG/2 ML AMP ONE ×2 (07:10→10:20)
[2019-02-06] MEDS ORDERED: KETAMINE HCL-NS 50 MG/5 ML SYR ONE (07:10)
[2019-02-06] MEDS ORDERED: ONDANSETRON 4 MG/2 ML VIAL ONE (07:11)
[2019-02-06] MEDS ORDERED: DEXAMETHASONE SOD PHOS 10MG/ML ONE (07:11)
[2019-02-06] MEDS ORDERED: PROPOFOL EMUL(*) 10MG/ML 20 ML 20 ML ONE (07:11)
[2019-02-06] MEDS ORDERED: LIDOCAINE MPF 1% 5 ML VIAL ONE (07:11)
[2019-02-06] MEDS ORDERED: LIDO/EPI 1% MDV 1:100,000 20ML INFIL ONE (08:12)
[2019-02-06] MEDS ORDERED: NORMOSOL R SOLN(*) 1000 ML BAG 1,000 ML IV PRN (08:30)
[2019-02-06] MEDS ORDERED: FAMOTIDINE 20 MG TAB PO ONE (08:30)
[2019-02-06] MEDS ORDERED: MIDAZOLAM 2 MG/2 ML VIAL IVP PRN (08:30)
[2019-02-06] MEDS ORDERED: ceFAZolin(*) 2GM/D5W 50ML 50 ML IVPB ONE (08:30)
[2019-02-06] MEDS ORDERED: LIDOCAINE/SOD BICARB 8.4% SYR ID ONE (08:30)
[2019-02-06] MEDS ORDERED: ePHEDrine 25 MG/5 ML DISP.SYR IVP ONE (08:34)
[2019-02-06] MEDS ORDERED: LR(*) 1000 ML BAG 1,000 ML IV PRN (08:34)
[2019-02-06] MEDS ORDERED: PROMETHAZINE 25 MG/ML 1 ML AMP IVP PRN (08:35)
[2019-02-06] MEDS ORDERED: ONDANSETRON 4 MG ODT TABDP SL PRN (08:35)
--- NOTE | 2019-02-06 08:37 | Post Operative Note ---
Operative Note - ENT Operative Day Date: Feb 06, 2019 Physicians Surgeon: [employer] Specialist: Killian Anesthesia: GETA Diagnosis Pre-Op Diagnosis: toxic goiter Post-Op Diagnosis: same Procedure Procedure(s): right thyroid lobectomy Specimen Removed:(Maybe N/A): right thyroid lobe Complications: none Fluids Fluids: see anesthesia note Estimated Blood Loss: 50 ml MARINE AKBAR JR, MD Feb 06, 2019 08:37
[2019-02-06] MEDS ORDERED: METOPROLOL TART 5 MG/5 ML VIAL ONE (08:46)
[2019-02-06] MEDS ORDERED: PHENYLEPHRINE 10 MG/1 ML VIAL ONE (08:51)
[2019-02-06] MEDS ORDERED: LISINOPRIL 5 MG TAB PO SCH (09:00)
[2019-02-06] MEDS ORDERED: SUGAMMADEX SOD 200 MG/2 ML SDV ONE (09:13)
[2019-02-06] MEDS ORDERED: LIDOCAINE 2% IV 100 MG/5ML SYR ONE (09:14)
--- NOTE | 2019-02-06 10:25 | OPERATIVE REPORT 1 ---
EVENT DATE: February 06, 2019 SURGEON: José Addison MD ANESTHESIOLOGIST: Yohan Hernandez MD ANESTHESIA: General endotracheal. CARD DOFFER: Shaniqua Daily MACHINE II CUTTER, CSFA PREOPERATIVE DIAGNOSIS Toxic goiter. POSTOPERATIVE DIAGNOSIS Toxic goiter. PROCEDURE PERFORMED Right thyroid lobectomy. INDICATIONS Please refer to the preoperative note. DESCRIPTION OF PROCEDURE The patient was positively identified in the preoperative area. He was accompanied there by his . Risks and benefits were explained including, but not limited to, bleeding, infection, injury to the recurrent laryngeal nerve, transient or permanent dysphonia and those associated with anesthesia. He acknowledged understanding those risks. He was then brought back to the operating suite, laid supine on the operating table and anesthesia was administered. Of note, the laryngeal nerve monitor was applied to the patient and utilized throughout the case. A favorable neck crease was identified overlying the thyroid gland. An approximately 5 cm incision was marked. 1 cc of 1% lidocaine with epinephrine was infiltrated. The patient was then prepped and draped in the usual sterile fashion. The aforementioned incision was then made with a #15 blade. The underlying subcutaneous tissue was then dissected with Bovie electrocautery. The platysma muscle was identified and divided with Bovie electrocautery. Subplatysmal flaps were elevated superiorly to above the thyroid notch inferiorly to the level of the sternal notch. The sternal musculature was identified and divided along the median raphe. I then elevated the sternal muscular off the right thyroid lobe. The superior vessels were skeletonized and then come across with the Harmonic scalpel. I then rotated the lobe medically and dissected from the surrounding connective tissue. The recurrent laryngeal nerve was identified and confirmed with the nerve probe. This was traced to its entrance into the trachea. Both parathyroid glands were felt to be preserved in situ. I then came across the inferior pole vessels with Harmonic scalpel. I then divided the right lobe and isthmus from the left lobe. This was sent for permanent pathology. Hemostasis was obtained. A small piece of Fibrillar Surgicel was placed in the wound bed. The strap musculature and platysma were then reapproximated with interrupted Chromic stitch. The skin was closed in multi-layer fashion. The patient was then turned to Anesthesia for emergence. ESTIMATED BLOOD LOSS 50 cc. COMPLICATIONS No complications. [facility]
[2019-02-06] MEDS: APAP/HYDROCODONE 325/5 TAB PO PRN ×3 (12:20→16:37)
[2019-02-06] MEDS ORDERED: LOR5/325 PO (15:15)
--- NOTE | 2019-02-06 15:20 | Short(Outpt) Discharge Summary ---
Discharge Summary Reason for Hosp/Final Diag: (1) Toxic goiter Status: Resolved Hospital Course & Plan: Patient underwent right thyroid lobectomy on day of admission. Held for observation approximately 6 hours and discharged home. Pain controlled. Eric reg diet. Departure Discharge to: Home Discharge Instructions Home Meds Active Scripts Hydrocodone Bit/Acetaminophen (HYDROCODON-ACETAMINOPHEN 5-325) 1 Each Tablet, 1 EACH PO Q4H PRN for MILD TO MODERATE PAIN for 7 Days, #15 TAB Prov:MARINE AKBAR JR, MD 02/06/19 Reported Medications Loratadine (LORATADINE) 10 Mg Tablet, 10 MG PO 12/29/18 Methimazole (METHIMAZOLE) 5 Mg Tablet, 5 MG PO 12/29/18 Aspirin (ASPIR 81) 81 Mg Tablet.dr, 81 MG PO QDAY, TAB 11/17/17 Lisinopril (LISINOPRIL) 5 Mg Tablet, 1 TAB PO QDAY, TAB 11/15/17 Discontinued Scripts Atenolol (ATENOLOL) 50 Mg Tablet, 1 TAB PO BID for 30 Days, #60 TAB Prov:MARINE AKBAR JR, MD 01/05/19 Diet: Regular Activity: No Heavy Lifting, No Exertion Special Instructions: Hold aspirin for a week and resume. May shower. Do not soak steris. Follow up appt Wednesday, 02/14 at 8 AM. MARINE AKBAR JR, MD Feb 06, 2019 15:20
== END 2019-02-06 15:16 | disposition home or self-care (01) ==
LOC: OR 02:31 → MED 11:30
PROVIDERS: ADMIT Otolaryngology; ATTEND Otolaryngology
DX: E05.00 Thyrotoxicosis with diffuse goiter without thyrotoxic crisis or storm (principal); Z79.82 Long term (current) use of aspirin; I10 Essential (primary) hypertension
CPT/HCPCS: 60210; 88307; G0378; J1100; J2001; J2370; J2405; J2704; J3010; J3490; J0690

== ENCOUNTER → 2019-02-14 | Outpatient (CLI) | payer OTHER ==
[~2019-02-14] MED LIST changes: +LOR5/325 PO
== END ==
LOC: LAB 08:13
PROVIDERS: ATTEND Otolaryngology
DX: E05.00 Thyrotoxicosis with diffuse goiter without thyrotoxic crisis or storm (principal)
CPT/HCPCS: 36415; 82306; 84439; 84443